=== PATIENT | female | born 1980 | race Two or more races ===

== ENCOUNTER 2024-03-12 08:06 | Outpatient (CLI) | payer OTHER | END 2024-03-12 08:11 | disposition home or self-care (01) | LOC: RAD 08:06 | PROVIDERS: ATTEND Obstetrics & Gynecology | DX: J06.9 Acute upper respiratory infection, unspecified (principal); Z03.818 Encounter for observation for suspected exposure to other biological agents ruled out ==

== ENCOUNTER 2024-03-12 08:48 | Outpatient (CLI) | payer OTHER ==
[2024-03-12 09:50] LABS: HEMATOCRIT 34.1 % (36.0-45.00); HEMOGLOBIN 10.9 g/dL (12.0-15.00); MEAN CORPUSCULAR HEMOGLOBIN 25.9 pg (27.00-32.0); PLATELET COUNT 310 K/uL (150-450); RED BLOOD COUNT 4.21 M/uL (4.00-6.00); RED CELL DISTRIBUTION WIDTH 22.3 % (11.5-14.5)
[2024-03-12 09:55] LABS: PH,URINE 5.5 (5.0-8.0); URINE APPEARANCE Clear; URINE BILIRRUBIN Negative (NEGATIVE); URINE BLOOD Negative; URINE COLOR Yellow; URINE GLUCOSE Negative (NEGATIVE); URINE KETONE Negative (NEGATIVE); URINE LEUKOCYTE Negative; URINE NITRATE Negative; URINE PROTEIN Negative (NEGATIVE); URINE UROBILINOGEN 0.2 E.U./dl
[2024-03-12 09:58] LABS: URINE BACTERIA 96.6 uL (0.0-1933); URINE WBC 2.5 uL (0.0-23.2)
[2024-03-12 10:02] LABS: URINE EPITHELIAL CELLS 0.9 uL (0.0-38.8); URINE RBC 0.7 uL (0.0-20.8)
[2024-03-12 10:39] LABS: INR 1.01
[2024-03-12 10:53] LABS: PARTIAL THROMBOPLASTIN TIME 26.8 SECONDS (22.0-34.0)
[2024-03-12 10:59] LABS: ALBUMIN 3.6 gm/dL (3.4-5.0); BILIRUBIN TOTAL 0.35 mg/dL (0.3-1.2); CALCIUM 10.2 mg/dL (8.5-10.1); CREATININE SERUM 0.83 mg/dL (0.55-1.02); GFR 75.03; GLOBULINA 3.6 G/DL (2.4-3.5); POTASSIUM 4.74 mEq/L (3.5-5.1); TOTAL PROTEIN 7.2 gm/dL (6.4-8.2)
== END 2024-03-12 08:49 | disposition home or self-care (01) ==
LOC: LAB 08:48
PROVIDERS: ATTEND Obstetrics & Gynecology
DX: D64.9 Anemia, unspecified (principal); N39.0 Urinary tract infection, site not specified; N91.1 Secondary amenorrhea

== ENCOUNTER 2024-03-18 09:15 | Inpatient (IN) | payer OTHER ==
[~2024-03-18] VITALS: Ht 175.3 cm; Wt 86.2 kg
[2024-03-18] MEDS ORDERED: ZESTRIL20 MG PO (10:31)
[2024-03-18] MEDS ORDERED: TOPROL XL25 M1 PO (10:31)
[2024-03-18 10:32] VITALS: BP 120/71
[2024-03-18 12:55] LABS: RH POSITIVE
[2024-03-20] MEDS ORDERED: CEFAZOLIN SODIUM 1,000 MG VIAL IV ONE (18:15)
[2024-03-20] MEDS ORDERED: SUGAMMADEX SODIUM 200 MG/2 ML VIAL IV ONE (18:15)
[2024-03-20] MEDS ORDERED: HEMOSTATIC MATRIX 1 KIT KIT TOP ONE (19:00)
[2024-03-20] MEDS ORDERED: PROMETHAZINE HCL 50 MG/ML AMPUL IM PRN (19:30)
[2024-03-20] MEDS ORDERED: MEPERIDINE HCL/PF 50 MG/ML VIAL IM PRN (19:30)
[2024-03-20] MEDS ORDERED: MORPHINE SULFATE 4 MG/ML VIAL IV ONE ×2 (20:00→20:30)
[2024-03-20 21:13] VITALS: BP 134/80
[2024-03-21 01:08] VITALS: BP 148/75
[2024-03-21 06:33] LABS: HEMATOCRIT 35.6 % (36.0-45.00); HEMOGLOBIN 11.4 g/dL (12.0-15.00); MEAN CELL VOLUME 81.1 fL (80.00-100.00); MEAN CORPUSCULAR HEMOGLOBIN 25.8 pg (27.00-32.0); MEAN CORPUSCULAR HGB CONC 31.9 g/dl (32.0-36.0); PLATELET COUNT 251 K/uL (150-450); RED BLOOD COUNT 4.39 M/uL (4.00-6.00); RED CELL DISTRIBUTION WIDTH 21.1 % (11.5-14.5)
[2024-03-21 07:01] LABS: ALBUMIN 3.2 gm/dL (3.4-5.0); BILIRUBIN TOTAL 0.5 mg/dL (0.3-1.2); CALCIUM 9.8 mg/dL (8.5-10.1); CREATININE SERUM 0.62 mg/dL (0.55-1.02); GFR 105.06; GLOBULINA 3.4 G/DL (2.4-3.5); POTASSIUM 4.16 mEq/L (3.5-5.1); TOTAL PROTEIN 6.6 gm/dL (6.4-8.2)
[2024-03-21 08:00] VITALS: BP 138/80
[2024-03-21] MEDS ORDERED: OxyCODONE HCL/APAP UD (PERCOCET) PO PRN (08:00)
[2024-03-21] MEDS ORDERED: SIMETHICONE 125 MG CAPSULE PO SCH (09:00)
[2024-03-21] MEDS ORDERED: DOCUSATE SODIUM 100MG CAP PO SCH (09:00)
[2024-03-21 16:03] VITALS: BP 134/85
[2024-03-22 01:18] VITALS: BP 127/70
[2024-03-22 08:00] VITALS: BP 123/80
[2024-03-22 16:00] VITALS: BP 105/65
[2024-03-23 01:30] VITALS: BP 110/74
[2024-03-23 08:50] VITALS: BP 108/69
[2024-03-23] MEDS ORDERED: IBUprofen 800 MG TABLET PO PRN (09:00)
== END 2024-03-23 11:50 | disposition home or self-care (01) | DRG 743 ==
LOC: OB/GYN 03-20 07:00 → O/R 03-20 07:27 → OB/GYN 03-20 09:15
PROVIDERS: ADMIT Obstetrics & Gynecology; ATTEND Obstetrics & Gynecology
PROC: 0UT70ZZ Resection of Bilateral Fallopian Tubes, Open Approach (ICD-10-PCS; 2024-03-20)
PROC: 0UQ20ZZ Repair Bilateral Ovaries, Open Approach (ICD-10-PCS; 2024-03-20)
PROC: 0UT90ZZ Resection of Uterus, Open Approach (ICD-10-PCS; principal; 2024-03-20 07:00)
DX: D25.0 Submucous leiomyoma of uterus (principal); D25.2 Subserosal leiomyoma of uterus; Z20.822 Contact with and (suspected) exposure to COVID-19